=== PATIENT | female | born 1975 | race Caucasian/White ===

== ENCOUNTER 2016-09-11 23:59 | Emergency (ER) | payer OTHER ==
[2016-09-12 00:12] VITALS: TEMP 97.1; BMI 23.3
[2016-09-12] MEDS ORDERED: IBUPROFEN 400 MG TABLET (FP) PO ONE ×2 (00:26→01:41)
--- NOTE | 2016-09-12 00:26 | PDOC ---
History of Present Illness - General Chief Complaint: Chest Pain Stated Complaint: CHEST PAIN Time Seen by Provider: 09/12/16 00:16 History Source: Patient - History of Present Illness Initial Comments: 09/12/16 00:25 41 year old female with reproducible right sided chest pain worse with when moving right arm. denies NV, diaphoresis, SOB, pleuritic pain. Past History - Past Medical History Allergies/Adverse Reactions: Allergies Allergy/AdvReac Type Severity Reaction Status Date / Time No Known Allergies Allergy Verified 01/24/16 13:09 Home Medications: Ambulatory Orders Levothyroxine [Synthroid -] 88 mcg PO DAILY 11/24/13 Ibuprofen [Motrin -] 600 mg PO TID PRN #14 tablet 09/12/16 Suicide Attempt (Hx): No Thyroid Disease: Yes - Immunization History Immunization Up to Date: No - Psycho/Social/Smoking Cessation Hx Anxiety: No Suicidal Ideation: No Smoking Status: No Smoking History: Never smoked Years of Tobacco Use: 0 Have you smoked in the past 12 months: No Number of Cigarettes Smoked Daily: 0 Information on smoking cessation initiated: No Hx Alcohol Use: No Drug/Substance Use Hx: No Substance Use Type: None *Physical Exam - Vital Signs Last Vital Signs Temp Pulse Resp BP Pulse Ox 97.1 F L 98 H 20 138/94 98 09/12/16 00:08 09/12/16 00:08 09/12/16 00:08 09/12/16 00:08 09/12/16 00:08 - Physical Exam General Appearance: Yes: Appropriately Dressed Respiratory/Chest: positive: Chest Tender (right side tender pain worse with movement), Lungs Clear, Normal Breath Sounds Cardiovascular: positive: Regular Rhythm, Regular Rate Gastrointestinal/Abdominal: positive: Normal Bowel Sounds, Soft Extremity: positive: Normal Capillary Refill, Normal Inspection, Normal Range of Motion Integumentary: positive: Normal Color, Dry, Warm Neurologic: positive: Fully Oriented, Alert Heart Score/ECG Review - ECG Intrepretation Rhythm: Regular Rhythm Comment:: 09/12/16 01:54 NSR: 99 ED Treatment Course - Medications Given in the ED: ED Medications Discontinued Medications Generic Name Dose Route Start Last Admin Trade Name Freq PRN Reason Stop Dose Admin Ibuprofen 800 mg 09/12/16 00:26 09/12/16 01:44 Motrin - PO 09/12/16 00:27 800 mg ONCE ONE Administration *DC/Admit/Observation/Transfer Diagnosis at time of Disposition: Chest pain Qualifiers: Chest pain type: intercostal pain Qualified Code(s): R07.82 - Intercostal pain - Discharge Dispostion Disposition: HOME - Patient Instructions Printed Discharge Instructions: DI for Chest Pain Additional Instructions: take ibuprofen as needed for pain follow up with your doctor as soon as possible. return to the ER if symptoms worsen
[2016-09-12 01:59] VITALS: BP 152/102; PULSE 84
--- NOTE | 2016-09-12 02:06 | PDOC ---
*Physical Exam - Vital Signs Last Vital Signs Temp Pulse Resp BP Pulse Ox 97.1 F L 84 16 152/102 100 09/12/16 00:08 09/12/16 01:58 09/12/16 01:58 09/12/16 01:58 09/12/16 01:58 ED Treatment Course - Medications Given in the ED: ED Medications Discontinued Medications Generic Name Dose Route Start Last Admin Trade Name Johana PRN Reason Stop Dose Admin Ibuprofen 800 mg 09/12/16 00:26 09/12/16 01:44 Motrin - PO 09/12/16 00:27 800 mg ONCE ONE Administration Medical Decision Making - Medical Decision Making 09/12/16 02:05 agree with care from JUAN Balderrama *DC/Admit/Observation/Transfer Diagnosis at time of Disposition: Chest pain Qualifiers: Chest pain type: intercostal pain Qualified Code(s): R07.82 - Intercostal pain - Discharge Dispostion Disposition: HOME - Referrals - Patient Instructions Printed Discharge Instructions: DI for Chest Pain Additional Instructions: take ibuprofen as needed for pain follow up with your doctor as soon as possible. return to the ER if symptoms worsen - Post Discharge Activity
--- NOTE | 2016-09-12 11:03 | EKG ---
Test Reason : Blood Pressure : / mmHG Vent. Rate : 099 BPM Atrial Rate : 099 BPM P-R Int : 134 ms QRS Dur : 078 ms QT Int : 342 ms P-R-T Axes : 049 038 050 degrees QTc Int : 438 ms NORMAL SINUS RHYTHM NORMAL ECG WHEN COMPARED WITH ECG OF 31-DEC-2014 16:46, NO SIGNIFICANT CHANGE WAS FOUND BASELINE ARTIFACT Confirmed by JHONATAN ABRAHAM MD ([id number]) on 09/12/2016 11:02:44 AM Referred By: Confirmed By:JHONATAN ABRAHAM MD
== END 2016-09-12 02:35 | disposition home or self-care (01) ==
LOC: JER 23:59
DX: R07.82 Intercostal pain (principal); E03.9 Hypothyroidism, unspecified
CPT/HCPCS: 93005; 93010; 99282-25